=== PATIENT | male | born 2000 | race Caucasian/White ===

== ENCOUNTER 2021-05-22 12:00 | Emergency (ER) | payer BC, OTHER ==
[~2021-05-22] VITALS: Ht 188 cm; Wt 79.5 kg
[2021-05-22] MEDS ORDERED: OMNI-PAC300 MG PO (16:08)
[2021-05-22] MEDS ORDERED: HYDROCO/APAP1 TA9 PO (16:08)
[2021-05-22 16:15] VITALS: BP 131/65
== END 2021-05-22 16:15 | disposition home or self-care (01) | DRG 605 ==
LOC: ED 12:00
PROC: 0HQEXZZ Repair Left Lower Arm Skin, External Approach (ICD-10-PCS; principal; 2021-05-22)
DX: S51.812A Laceration without foreign body of left forearm, initial encounter (principal); S56.922A Laceration of unspecified muscles, fascia and tendons at forearm level, left arm, initial encounter; M25.532 Pain in left wrist; M25.522 Pain in left elbow; V86.95XA Unspecified occupant of 3- or 4- wheeled all-terrain vehicle (ATV) injured in nontraffic accident, initial encounter; Y93.I9 Activity, other involving external motion; Y92.833 Campsite as the place of occurrence of the external cause